=== PATIENT | female | born 1975 | race African-American/Black ===

== ENCOUNTER 2016-09-12 21:03 | Emergency (ER) | payer MEDICAID, OTHER ==
[~2016-09-12] VITALS: Ht 157.5 cm; Wt 120.0 kg
[~2016-09-12 21:03] MED LIST: 1-ME1LIQ PO; ADDE10XR PO; ALBU1AER INH; BENZ100 PO; LEXA20TA PO; LISD60 PO; LISI-363 PO; PRED20 PO
[2016-09-12 21:05] VITALS: BP 141/93; PULSE 87; RESP 15; TEMP 98.5; O2SAT 98
[2016-09-12] MEDS ORDERED: AMLO10TA2 PO (21:20)
[2016-09-12] MEDS ORDERED: ZITHTAB PO (21:20)
[2016-09-12] MEDS ORDERED: LISI20TA PO (21:20)
--- NOTE | 2016-09-12 21:25 | PD ---
HPI Chief Complaint: ENT Complaint Time Seen by Provider: 21:25 Travel History International Travel<30 days: No Contact w/Intl Traveler<30days: No Traveled to known affect area: No History of Present Illness HPI 21-year-old female presents to emergency department for evaluation of her right ear. Patient was diagnosed with otitis media and started on azithromycin on September 08. She states she has been taking this as directed in her symptoms of only worsened. Pain is constant, throbbing. Subjective fever and chills. No trauma to the area. She does have drainage from the right ear. No cough or chest congestion. No other symptoms to report. PFSH Past Medical History ADD: Yes Asthma: Yes Anxiety: Yes Cardiovascular Problems: Yes (HTN) Diminished Hearing: No Tetanus Vaccination: < 5 Years Influenza Vaccination: No ?: Not LMP: NOW Tubal Ligation: Yes Past Surgical History Section: Yes Social History Alcohol Use: No Tobacco Use: No Substance Use: No Allergies-Medications (Allergen,Severity, Reaction): Coded Allergies: Sulfa (Verified Allergy, Severe, hives, 09/12/16) Reported Meds & Prescriptions Reported Meds & Active Scripts Active Cortisporin HC Otic Drops (Tadykrpg-Ebfminpgv-OC Otic Drops) 3.5-10,000-1 Mg- Units-% Soln 4 Drop EACH EAR QID Ibuprofen 800 Mg Tab 800 Mg PO Q8H PRN Augmentin (Amoxicillin-Clavulanate) 875-125 mg Tab 875 Mg PO BID 10 Days not for use in CrCl <30 ml/min. Reported Zithromax Z-Sanjay (Azithromycin) 250 Mg Dspk 500 Mg PO DIRECTED 500 MG (2 tabs) day 1, then 1 tab days 2-5. Lisinopril-Hctz 20-12.5 Mg Tab 1 Tab PO DAILY Amlodipine (Amlodipine Besylate) 10 Mg Tab 10 Mg PO DAILY Review of Systems Except as stated in HPI: all other systems reviewed are Neg Physical Exam Narrative GENERAL: Well-nourished, well-developed female patient, ambulatory no acute distress SKIN: Warm and dry. HEAD: Normocephalic. Atraumatic. No mastoid tenderness. EARS: Bilateral pinnae and external canals appear within normal limits. Left tympanic membranes without erythema, dullness or perforation. Right tympanic membrane is bulging with erythema. The canal is also swollen with a purulent drainage. No perforation is visualized of the membrane. EYES: No scleral icterus. No injection or drainage. ENT: Mucosa pink and moist. No erythema or exudates. No uvular edema. No uvular , palatal, or tonsillar deviation. Airway patent. Nasal turbinates appear normal without nasal blood, purulent drainage or septal hematoma. NECK: Supple, trachea midline. No JVD or lymphadenopathy. CARDIOVASCULAR: Regular rate and rhythm without murmurs, gallops, or rubs. RESPIRATORY: Breath sounds equal bilaterally. No accessory muscle use. Data Data Last Documented VS Vital Signs Date Time Temp Pulse Resp B/P Pulse Ox O2 Delivery O2 Flow Rate FiO2 09/12/16 21:21 16 09/12/16 21:05 98.5 87 141/93 98 Room Air Orders Ketorolac Inj (Toradol Inj) (09/12/16 22:00) Amoxicil-Clavulanate (Augmentin) (09/12/16 22:00) MDM Medical Decision Making Medical Screen Exam Complete: Yes Emergency Medical Condition: Yes Medical Record Reviewed: Yes Differential Diagnosis Otitis externa versus otitis media versus tympanic membrane rupture versus perforation versus viral syndrome versus flu Narrative Course 41-year-old female presents to the emergency department for evaluation of ear pain. Patient is noted to have signs consistent with otitis media as well as otitis externa. I have advised that she stop the azithromycin and will start her on Augmentin. She is encouraged to follow-up with primary care provider. She agrees to return immediately with any acute worsening of symptoms. Diagnosis Primary Impression: Otitis externa Qualified Code: H60.393 - Other infective acute otitis externa of both ears Additional Impression: Otitis media Qualified Code: H66.002 - Acute suppurative otitis media of left ear without spontaneous rupture of tympanic membrane, recurrence not specified Referrals: Primary Care Physician Patient Instructions: General Instructions, Otitis Externa (ED), Otitis Media ( ED) Departure Forms: Tests/Procedures, Work Release Enter return to work date: Sep 15, 2016 Additional Instructions: Avoid water submersion Follow-up with primary care provider Start antibiotic in the morning and take it until it is all gone Return immediately to the emergency department with any acute worsening of symptoms Med/Other Pt SpecificInfo: Prescription(s) given Scripts Cfospfcm-Fvqsvtvit-HC Otic Drops (Cortisporin HC Otic Drops)3.5-10,000-1 Mg- Units-% Soln4 Drop EACH EAR QID #1 BOTTLE Ref 0 Prov:Alida Smith 09/12/16 Ibuprofen 800 Mg [id number] Mg PO Q8H PRN (Pain/Inflammation) #30 TAB Ref 0 Prov:Alida Smith 09/12/16 Amoxicillin-Clavulanate (Augmentin)875-125 mg [id number] Mg PO BID 10 Days Ref 0 not for use in CrCl <30 ml/min. Prov:Alida Smith 09/12/16 Disposition: 01 DISCHARGE HOME Condition: Stable Alida Smith Sep 12, 2016 21:25
[2016-09-12] MEDS ORDERED: AUGM875T PO (21:52)
[2016-09-12] MEDS ORDERED: IBUP800T23 PO (21:52)
[2016-09-12] MEDS ORDERED: CORT1SOL EACH EAR (21:53)
[2016-09-12] MEDS ORDERED: KETOROLAC TROMETHAMINE 60 MG/2 ML (IM) VIAL IM ONE (22:00)
[2016-09-12] MEDS ORDERED: AMOXICILLIN/CLAVULANATE K 875 MG TAB PO ONE (22:00)
== END 2016-09-12 22:18 | disposition home or self-care (01) ==
LOC: NEPB 21:03
DX: H66.91 Otitis media, unspecified, right ear (principal); H60.8X1 Other otitis externa, right ear; J45.909 Unspecified asthma, uncomplicated; I10 Essential (primary) hypertension
CPT/HCPCS: 96372; 99283; J1885

== ENCOUNTER 2016-09-30 20:31 | Emergency (ER) | payer OTHER ==
[~2016-09-30] VITALS: Ht 154.9 cm; Wt 118.5 kg
[~2016-09-30 20:31] MED LIST changes: -1-ME1LIQ PO; -ADDE10XR PO; -ALBU1AER INH; +AMLO10TA2 PO; +AUGM875T PO; -BENZ100 PO; +CORT1SOL EACH EAR; +IBUP800T23 PO; -LEXA20TA PO; -LISD60 PO; -LISI-363 PO; +LISI20TA PO; -PRED20 PO; +ZITHTAB PO
[2016-09-30 20:57] VITALS: BP 142/90; PULSE 90; RESP 20; TEMP 98.7; O2SAT 98
--- NOTE | 2016-09-30 21:09 | PD ---
HPI Chief Complaint: ENT Complaint Time Seen by Provider: 21:09 Travel History International Travel<30 days: No Contact w/Intl Traveler<30days: No Traveled to known affect area: No History of Present Illness HPI 41-year-old Afro-[place] female presents the emergency Department with complaints of recurrent right ear pain, and drainage the past several days. Patient was recently seen approximately 3 weeks ago with diagnosis of external otitis, treated with Augmentin and Cortisporin drops as well as ibuprofen. Patient states no fever or sore throat or headache. Patient denies any other significant complaints or history. She is allergic to sulfa. [facility] Past Medical History ADD: Yes Asthma: Yes Anxiety: Yes Cardiovascular Problems: Yes (HTN) Diminished Hearing: No ?: Unknown LMP: Three weeks ago Tubal Ligation: Yes Past Surgical History Section: Yes Social History Alcohol Use: No Tobacco Use: No Substance Use: No Allergies-Medications (Allergen,Severity, Reaction): Coded Allergies: Sulfa (Verified Allergy, Severe, hives, 09/30/16) Reported Meds & Prescriptions Reported Meds & Active Scripts Active Reported Lexapro (Escitalopram Oxalate) 20 Mg Tab 20 Mg PO DAILY Lisinopril-Hctz 20-12.5 Mg Tab 1 Tab PO DAILY Amlodipine (Amlodipine Besylate) 10 Mg Tab 10 Mg PO DAILY Review of Systems Except as stated in HPI: all other systems reviewed are Neg General / Constitutional: No: Fever Eyes: No: Visual changes HENT: Positive: Ear Discharge, Earache, No: Headaches, Sore Throat, Rhinitis, Rhinorrhea, Congestion, Nosebleed, Neck Stiffness, Neck Pain, Dental Difficulties Cardiovascular: No: Chest Pain or Discomfort Respiratory: No: Shortness of Breath Gastrointestinal: No: Abdominal Pain Genitourinary: No: Dysuria Musculoskeletal: No: Pain Skin: No Rash Neurologic: No: Weakness Psychiatric: No: Depression Endocrine: No: Polydipsia Hematologic/Lymphatic: No: Easy Bruising Physical Exam Narrative GENERAL: Patient appears no acute distress. SKIN: Warm and dry. Normal color. Normal turgor. No rash. HEAD: Atraumatic. Normocephalic. EYES: Pupils equal and round. No scleral icterus. No injection or drainage. ENT: No nasal bleeding or discharge. Mucous membranes pink and moist. Left ear canal and TM are normal. Right ear has pain with motion of the pinna, as well as swelling and erythema of the external canal with yellowish-green drainage noted. TMs are somewhat dull but no signs of perforation. Pharynx is normal. No sinus tenderness. No dental pain. NECK: Trachea midline. No JVD. Supple and nontender. CARDIOVASCULAR: Regular rate and rhythm. No murmurs gallops or rubs appreciated. RESPIRATORY: No accessory muscle use. Clear to auscultation. Breath sounds equal bilaterally. MUSCULOSKELETAL: Extremities without clubbing, cyanosis, or edema. No obvious deformities. NEUROLOGICAL: Awake and alert. No obvious cranial nerve deficits. Motor grossly within normal limits. Five out of 5 muscle strength in the arms and legs. Normal speech. PSYCHIATRIC: Appropriate mood and affect; insight and judgment normal. Data Data Last Documented VS Vital Signs Date Time Temp Pulse Resp B/P Pulse Ox O2 Delivery O2 Flow Rate FiO2 09/30/16 20:57 98.7 90 20 142/90 98 MDM Medical Decision Making Medical Screen Exam Complete: Yes Emergency Medical Condition: Yes Differential Diagnosis Chronic recurrent right external otitis. Probable Pseudomonas infection. Otitis medial. Narrative Course Patient is in no acute distress. Patient will be treated with Cipro 500 mg twice a day 10 days. Patient is given ibuprofen 800 mg 3 times a day #30. Patient is given a prescription for Ciprodex drops 3 drops in the right ear twice daily for 10 days. Patient to follow with her primary care physician in 2 weeks to ensure resolution. Patient to return to emergency department if symptoms worsen. Diagnosis Primary Impression: External otitis of right ear Qualified Code: H60.61 - Chronic otitis externa of right ear, unspecified type Referrals: Primary Care Physician Patient Instructions: General Instructions Additional Instructions: Patient will be treated with Cipro 500 mg twice a day 10 days. Patient is given ibuprofen 800 mg 3 times a day #30. Patient is given a prescription for Ciprodex drops 3 drops in the right ear twice daily for 10 days. Patient to follow with her primary care physician in 2 weeks to ensure resolution. Patient to return to emergency department if symptoms worsen. Med/Other Pt SpecificInfo: Prescription(s) given Disposition: 01 DISCHARGE HOME Condition: Stable Mustapha Evans Sep 30, 2016 21:09
[2016-09-30] MEDS ORDERED: LEXA20TA PO (21:13)
== END 2016-09-30 21:47 | disposition home or self-care (01) ==
LOC: PHEFT 20:31
DX: H60.91 Unspecified otitis externa, right ear (principal); I10 Essential (primary) hypertension; J45.909 Unspecified asthma, uncomplicated; F41.9 Anxiety disorder, unspecified
CPT/HCPCS: 99283

== ENCOUNTER 2017-06-15 18:27 | Emergency (ER) | payer MEDICAID, OTHER ==
[~2017-06-15] VITALS: Ht 154.9 cm; Wt 116.0 kg
[~2017-06-15 18:27] MED LIST changes: -AUGM875T PO; -CORT1SOL EACH EAR; -IBUP800T23 PO; +LEXA20TA PO; -ZITHTAB PO
[2017-06-15 18:31] VITALS: BP 134/80; PULSE 99; RESP 16; TEMP 98.7; O2SAT 99
[2017-06-15] MEDS ORDERED: LISD60 PO (18:43)
[2017-06-15] MEDS ORDERED: FLUT1SPR5 EACH NARE (19:12)
--- NOTE | 2017-06-15 19:13 | PD ---
HPI . Left ear pain Chief Complaint: ENT Complaint Time Seen by Provider: 18:53 Travel History International Travel<30 days: No Contact w/Intl Traveler<30days: No Traveled to known affect area: No History of Present Illness HPI 42-year-old female presents emergency department for evaluation of left ear pain and nasal congestion 2 days. Patient has any fever, chills, chest pain, shortness breath, malaise, lightheadedness. Patient's only major medical history is hypertension. PFSH Past Medical History Hx Anticoagulant Therapy: No ADD: Yes Asthma: Yes Anxiety: Yes Depression: Yes Cardiovascular Problems: Yes (HTN) Diabetes: No Diminished Hearing: No Hypertension: Yes Tetanus Vaccination: > 5 Years Influenza Vaccination: No ?: Unknown LMP: 7 days ago Tubal Ligation: Yes Past Surgical History Section: Yes Social History Alcohol Use: No Tobacco Use: No Substance Use: No Allergies-Medications (Allergen,Severity, Reaction): Coded Allergies: Sulfa (Sulfonamide Antibiotics) (Unverified Allergy, Severe, hives, ) Reported Meds & Prescriptions Reported Meds & Active Scripts Active Flonase Nasal [place] (Fluticasone Nasal [place]) 50 Mcg/Act [place] 50 Mcg EACH NARE BID Reported Vyvanse (Lisdexamfetamine Dimesylate) 60 Mg Cap 60 Mg PO DAILY Lexapro (Escitalopram Oxalate) 20 Mg Tab 20 Mg PO DAILY Lisinopril-Hctz 20-12.5 Mg Tab 1 Tab PO DAILY Amlodipine (Amlodipine Besylate) 10 Mg Tab 10 Mg PO DAILY Review of Systems Except as stated in HPI: all other systems reviewed are Neg HENT: Positive: Congestion, Earache Physical Exam Narrative GENERAL: Well-nourished, well-developed 42-year-old female patient in no acute distress. Not toxic appearing. SKIN: Focused skin assessment warm/dry. HEAD: Normocephalic. Atraumatic. EYES: No scleral icterus. No injection or drainage. EARS: Bilateral pinnae and external canals appear within normal limits. Small area of fluctuation with diameter approximately 0.5 cm noted and the left ear canal. Bilateral tympanic membranes without erythema, dullness or perforation. ENT: Mucosa pink and moist. No erythema or exudates. No uvular edema. No uvular , palatal, or tonsillar deviation. Airway patent. Nasal turbinates appear mildly hypertrophic without nasal blood, purulent drainage or septal hematoma. NECK: Supple, trachea midline. No JVD or lymphadenopathy. CARDIOVASCULAR: Regular rate and rhythm without murmurs, gallops, or rubs. RESPIRATORY: Breath sounds equal bilaterally. No accessory muscle use. GASTROINTESTINAL: Abdomen soft, non-tender, nondistended. MUSCULOSKELETAL: No deformity, ecchymosis, erythema, cyanosis, or edema. Data Data Last Documented VS Vital Signs Date Time Temp Pulse Resp B/P (MAP) Pulse Ox O2 Delivery O2 Flow Rate FiO2 06/15/17 18:31 98.7 99 16 134/80 (98) 99 Orders Orders Ibuprofen (Motrin) (06/15/17 19:15) Wound Culture And Gram Stain (06/15/17 19:09) Ed Discharge Order (06/15/17 19:14) [facility] Medical Decision Making Medical Screen Exam Complete: Yes Emergency Medical Condition: Yes Differential Diagnosis Differential diagnosis includes but not limited to abscess, otitis media, nasal congestion, sinusitis Narrative Course 42-year-old female presents emergency department for evaluation of left ear pain and nasal congestion. On physical exam and was noted that is a small abscess in the left ear canal. I&D was performed. Please see my procedural narrative. Patient had moderate amount of nasal congestion. Patient was discharged home with prescription for Flonase and instructed to use ibuprofen as needed to help with pain, fevers and swelling. Patient instructed to return the emergency Department with any worsening condition but otherwise follow-up with primary care. Procedures Procedure Narrative INCISION AND DRAINAGE OF ABSCESS: The area was prepped and was sterilely draped. Gauge 18 needle used to aspirate the small abscess in the left ear canal. The abscess was drained, complex loculations were broken down, and irrigated with normal saline. Cultures were obtained. Diagnosis Primary Impression: Abscess of ear canal Qualified Codes: H60.02 - Abscess of left external ear Additional Impression: Nasal congestion Referrals: Primary Care Physician Patient Instructions: Abscess (ED), General Instructions Additional Instructions: Please return to emergency department if your symptoms return or worsen. Follow up with your primary care provider. Take medications as prescribed. Med/Other Pt SpecificInfo: Prescription(s) given Scripts Fluticasone Nasal [place] (Flonase Nasal [place]) 50 Mcg/Act [place] 50 MCG EACH NARE BID for Allergies, #1 BOTTLE 0 Refills Prov: Karime Fernandez 06/15/17 Disposition: 01 DISCHARGE HOME Condition: Stable Karime Fernandez Jun 15, 2017 19:13
[2017-06-15] MEDS ORDERED: IBUPROFEN 600 MG TAB PO ONE (19:15)
== END 2017-06-15 19:26 | disposition home or self-care (01) ==
LOC: PHEFT 18:27
DX: H60.02 Abscess of left external ear (principal); R09.81 Nasal congestion; B95.7 Other staphylococcus as the cause of diseases classified elsewhere; Z16.11 Resistance to penicillins; Z16.19 Resistance to other specified beta lactam antibiotics
CPT/HCPCS: 69020; 86403; 87070; 87186; 87205